=== PATIENT | male | born 1945 | race American Indian/Alaskan Native ===

== ENCOUNTER 2019-03-08 07:27 | Day surgery (SDC) | payer MEDICARE ==
[2019-03-08] MEDS ORDERED: NACL 0.9% 1000 ML 1,000 ML IV SCH (08:00)
[2019-03-08] MEDS ORDERED: VERSED ONE (09:42)
[2019-03-08] MEDS ORDERED: AMIDATE IV ONE (09:42)
[2019-03-08] MEDS ORDERED: DIPRIVAN 10 MG/ML IV ONE (09:42)
[2019-03-08] MEDS ORDERED: ZOFRAN ONE (09:42)
[2019-03-08] MEDS ORDERED: NEO SYNEPHRINE/NS Syringe(OR USE) IV ONE (09:43)
--- NOTE | 2019-03-08 09:59 | Short Stay Summary ---
Short Stay Documentation Date of service: 03/08/19 Narrative H&P: Patient is a 73 yo aam who presents for surveillance colonoscopy. Pt with h/o polyps on prior screening colonoscopy. Denies gi complaints at this time including abd pain, gi bleeding, or change in bowel habits. - History Past Medical History: other (see office note, no changes) Past Surgical History: Other (see office note) Social history: no significant social history - Allergies and Medications Current Medications: Allergies No Known Allergies Allergy (Verified 03/07/19 15:09) Home Medications Medication Instructions Recorded Confirmed Last Taken Type Aspirin BABY CHEW TAB 81 mg PO DAILY 03/07/19 03/08/19 03/07/19 History Carvedilol 25 mg PO DAILY 03/07/19 03/08/19 03/07/19 History Centrum Men's Tablet 1 tab PO DAILY 03/07/19 03/08/19 03/07/19 History Citalopram 20 mg PO DAILY 03/07/19 03/08/19 03/07/19 History Fenofibrate 54 mg PO DAILY 03/07/19 03/08/19 03/07/19 History Fish Oil 1 tab PO DAILY 03/07/19 03/08/19 03/07/19 History Furosemide 40 mg PO DAILY 03/07/19 03/08/19 03/07/19 History Gabapentin 300 mg PO DAILY 03/07/19 03/08/19 03/07/19 History Glimepiride 2 mg PO DAILY 03/07/19 03/08/19 03/07/19 History Losartan 100 mg PO DAILY 03/07/19 03/08/19 03/07/19 History Magnesium 1 tab PO DAILY 03/07/19 03/08/19 03/07/19 History Omeprazole 40 mg PO DAILY 03/07/19 03/08/19 03/07/19 History Simvastatin 20 mg PO DAILY 03/07/19 03/08/19 03/07/19 History amLODIPine 10 mg PO DAILY 03/07/19 03/07/19 03/07/19 History Active Medications Sodium Chloride (Nacl 0.9% 1000 Ml) 1,000 mls @ 50 mls/hr IV DIRECT NENITA Last Admin: 03/08/19 08:22 Dose: 50 mls/hr Documented by: - Physical exam General appearance: no acute distress Lungs: Clear to auscultation Heart: Regular rate, Normal S1, Normal S2 Gastrointestinal: normal - Brief post op/procedure progress note Date of procedure: 03/08/19 Pre-op diagnosis: personal history of colon polyps Post-op diagnosis: same (cecal polyp removed with cold snare) Procedure: colonoscopy with snare polypectomy Anesthesia: MAC Findings: ~8 mm sessile polyp in cecum removed with cold snare internal hemorrhoids Surgeon: GEOVANNI BRANCH Estimated blood loss: minimal Pathology: list (Cecal polyp) Specimen disposition: to lab Condition: stable - Disposition Condition at discharge: Good Disposition: DC-01 TO HOME OR SELFCARE Short Stay Discharge Plan Follow up with: ANNA DAVILA MD [Primary Care Provider] - 7 Days
--- NOTE | 2019-03-08 10:01 | Operative Report ---
Operative Report Operative Report: Colonoscopy Procedure Note with Snare polypectomy Date of procedure: 03/08/2019 Endoscopist: Olivier Davies Pre-op diagnosis: Personal history of colon polyps Post-op diagnosis: Cecal polyp, internal hemorrhoids Anesthesia: MAC Complications: No immediate complications Estimated blood loss: minimal Procedure: After consent was obtained, the patient was placed in the left lateral decubitus position. The olympus colonoscope was inserted into the patient's rectum under direct vision, and advanced to the cecum without difficulty. The patient tolerated the procedure well. The views of the mucosa were good. The quality of prep was good. The patient's vital signs were monitored continuously throughout the procedure. Findings: There was an ~8 mm sessile polyp in the cecum. The polyp was removed and retrieved with cold snare polypectomy. Internal hemorrhoids were visualized on retro-flexion view. Otherwise, the colon appeared normal. Impression: 1. Cecal polyp removed with cold snare. 2. Internal hemorrhoids Recommendations: -follow up pathology -repeat colonoscopy in 5 years for surveillance
--- NOTE | 2019-03-08 10:06 | Anesthesia Day of Surgery ---
Anesthesia Day of Surgery - Day of Surgery Patient Examined: Yes Patient H&P Reviewed: Yes Patient is NPO: Yes Beta Blockers: No Cardiac Clearance: Yes
--- NOTE | 2019-03-08 10:07 | Anesthesia Consultation ---
Anesthesia Consult and Med Hx Date of service: 03/08/19 - Airway Anesthetic Teeth Evaluation: Good ROM Head & Neck: Adequate Mental/Hyoid Distance: Adequate Mallampati Class: Class III Intubation Access Assessment: Possibly Difficult - Pulmonary Exam CTA: Yes - Cardiac Exam Cardiac Exam: No Murmur - Pre-Operative Health Status ASA Pre-Surgery Classification: ASA3 Proposed Anesthetic Plan: MAC - Cardiovascular System Hx Hypertension: Yes Hx Internal Defibrillator: Yes - Endocrine Hx Insulin Dependent Diabetes: Yes - Other Systems Hx Obesity: Yes
[2019-03-08 10:46] VITALS: BP 128/72
== END 2019-03-08 07:28 | disposition home or self-care (01) ==
LOC: GIO 07:27
PROVIDERS: ATTEND Internal Medicine Gastroenterology
DX: Z12.11 Encounter for screening for malignant neoplasm of colon (principal); D12.0 Benign neoplasm of cecum; K64.8 Other hemorrhoids; E11.9 Type 2 diabetes mellitus without complications; I11.0 Hypertensive heart disease with heart failure; I50.9 Heart failure, unspecified; K50.90 Crohn's disease, unspecified, without complications; E78.00 Pure hypercholesterolemia, unspecified; E66.9 Obesity, unspecified; Z86.010 Personal history of colon polyps; Z68.33 Body mass index [BMI] 33.0-33.9, adult; Z79.82 Long term (current) use of aspirin; Z79.84 Long term (current) use of oral hypoglycemic drugs; Z79.899 Other long term (current) drug therapy; Z98.890 Other specified postprocedural states
CPT/HCPCS: 45385; 82962; 88305; J2250; J2370; J2405; J2704; J7030